=== PATIENT | female | born 1980 | race Caucasian/White ===

== ENCOUNTER 2020-12-25 07:43 | Emergency (ER) | payer OTHER ==
[~2020-12-25] VITALS: Ht 154.9 cm; Wt 55.0 kg
--- NOTE | 2020-12-25 08:12 | PHYS DOC ---
General Adult HPI: HPI: Patient is a 40 year old female with PMHx of ADHD, migraine, and hemorrhoid, that presents to the ED with rectal bleeding that started at 0712 this morning. Patient states she has bright red blood per rectum, and has soaked 3 pads since onset of bleeding. Patient states she has a hx of hemorrhoids but denies a his tory of bleeding. Patient has pain with palpation and sitting. Patient reports she is still bleeding, and denies vaginal bleeding. She denies trauma to the area, or abdominal pain. She states she is constipated at baseline with bowel movement every 3 days. She states her doctor told her she is borderline anemic with vitamin D and E deficiency. She does report some lightheadedness and dizziness. Last menstrual period was 12/01/20, and denies chance of . No history of bleeding disorder or heavy periods. No other symptoms or complaints at this time. Review of Systems: Review of Systems: Constitutional: Denies fever or chills Eyes: Denies redness or eye pain HENT: Denies nasal congestion or sore throat Respiratory: Denies cough or shortness of breath Cardiovascular: Denies chest pain or palpitations GI: Denies abdominal pain, nausea, or vomiting. Bright red blood per rectum. : Denies dysuria or hematuria Musculoskeletal: Denies back pain or joint pain Integument: Denies rash or skin lesions Neurologic: Denies headache, focal weakness or sensory changes Complete systems were reviewed and found to be within normal limits, except as documented in this note. Physical Exam: PE: Constitutional: Well developed, well nourished, no acute distress, non-toxic appearance HENT: Normocephalic, atraumatic Eyes: PERRL, EOMI, conjunctiva normal, no discharge Neck: Normal range of motion, no tenderness, supple Lungs & Thorax: No respiratory distress, equal chest rise and fall Abdomen: Soft, no tenderness. rectal exam preformed. An external thrombosis observed, and a clot removed. NO internal hemorrhoids or fissures felt. Bleeding is controlled on examine. Skin: Warm, dry, no erythema, no rash Back: No tenderness, no CVA tenderness Extremities: No tenderness, ROM intact, no edema Neurologic: Alert and oriented X 3, normal motor function, normal sensory function, no focal deficits noted Psychologic: Affect normal, judgment normal Course & Med Decision Making: Course & Med Decision Making Patient is a 40 year old female presenting with rectal bleeding. Based on history and physical, suspected external hemorrhoid. Plan for symptomatic treatment, with surgeon follow-up information as needed. Patient stable for discharge with outpatient follow-up with PCP. Discussed findings and plan with patient, who acknowledges understanding and agreement. Gabriel Disclaimer: Gabriel Disclaimer: This electronic medical record was generated, in whole or in part, using a voice recognition dictation system. Departure Departure: Impression: Primary Impression: External hemorrhoid, bleeding Disposition: HOME SELF CARE/HOMELESS Condition: STABLE Referrals: SEAN OSCAR MD Patient Instructions: Hemorrhoids, [id number] Additional Instructions: Increase fluid hydration. Take stool softeners as directed. Start with twice daily but then decreased to once daily or once every other day to keep stool soft. Likewise increased use of stool softners as needed- again to keep stool soft. Scripts Hydrocortisone Acetate (ANUSOL-HC) 25 Mg Supp.rect 1 SUPP RC BID for Hemorrhoids for 7 Days, #14 SUPP 0 Refills Prov: ZULLY LOPEZ DO 12/25/20 Sennosides/Docusate Sodium (Colace 2-in-1 Tablet) 1 Each Tablet 1 TAB PO BID for Constipation, #90 TAB 0 Refills Prov: ZULLY LOPEZ DO 12/25/20 ZULLY LOPEZ DO Dec 25, 2020 08:11
[2020-12-25 08:26] VITALS: BP 105/63
[2020-12-25] MEDS ORDERED: SENN-121 PO (08:36)
[2020-12-25] MEDS ORDERED: HYDR25SU18 RC (08:36)
== END 2020-12-25 08:41 | disposition home or self-care (01) ==
LOC: ER 07:43
DX: K64.5 Perianal venous thrombosis (principal); K59.00 Constipation, unspecified; R42 Dizziness and giddiness; G43.909 Migraine, unspecified, not intractable, without status migrainosus; F90.9 Attention-deficit hyperactivity disorder, unspecified type
CPT/HCPCS: 99283